=== PATIENT | female | born 1955 ===

== ENCOUNTER 2018-03-30 20:09 | Emergency (ER) | payer OTHER ==
[2018-03-30 20:10] VITALS: BMI 28.4
[2018-03-30 20:24] VITALS: BP 149/78; PULSE 90; RESP 18; TEMP 98; O2SAT 100
--- NOTE | 2018-03-30 21:00 | ED PDOC ---
Upper Extremity Pain/Injury Time Seen by Provider: 03/30/18 20:31 Chief Complaint (Nursing): Upper Extremity Problem/Injury Chief Complaint (Provider): right arm pain History Per: Patient History/Exam Limitations: no limitations Onset/Duration Of Symptoms: Days (x3 weeks) Current Symptoms Are (Timing): Still Present Quality: "Pain" Additional Complaint(s): Love Tavares is a 62 year old female, with a past medical history of HTN and diabetes, who presents to the emergency department complaining of a right arm pain s/p fall x3 weeks ago. Patient works as a homemaker and states x3 weeks ago she slipped on wet floor and landed on her buttocks and back. Patient is unsure but states her right arm hit something while she was falling. She took Alieve for the pain, last dose was x2 days ago. She denies any other injuries, weakness, numbness or tingling. No further medical complaints. PMD: None provided. Past Medical History Reviewed: Historical Data, Nursing Documentation, Vital Signs Vital Signs: Last Vital Signs Temp 98 F 03/30/18 20:21 Pulse 90 03/30/18 20:21 Resp 18 03/30/18 20:21 BP 149/78 03/30/18 20:21 Pulse Ox 100 03/30/18 20:21 - Medical History PMH: Diabetes, HTN Denies: Chronic Kidney Disease - Surgical History Surgical History: No Surg Hx Denies: Pacemaker - Family History Family History: States: Unknown Family Hx - Social History Current smoker - smoking cessation education provided: No Alcohol: None Drugs: Denies - Home Medications Home Medications: Ambulatory Orders Medication Instructions Recorded Lisinopril [Zestril] 10 mg PO BID 10/21/16 MetFORMIN [glucOPHAGE] 1,000 mg PO BID 10/21/16 Ibuprofen [Motrin] 600 mg PO Q6 #20 tab 03/30/18 - Allergies Allergies/Adverse Reactions: Allergies Allergy/AdvReac Type Severity Reaction Status Date / Time No Known Allergies Allergy Verified 10/21/16 11:39 Review of Systems ROS Statement: Except As Marked, All Systems Reviewed And Found Negative Musculoskeletal: Positive for: Arm Pain (right) Neurological: Negative for: Numbness (tingling) Physical Exam - Reviewed Nursing Documentation Reviewed: Yes Vital Signs Reviewed: Yes - Physical Exam Appears: Positive for: No Acute Distress Head Exam: Positive for: ATRAUMATIC, NORMAL INSPECTION, NORMOCEPHALIC Skin: Positive for: Normal Color, Warm, Dry Eye Exam: Positive for: Normal appearance Neck: Positive for: Painless ROM Extremity: Positive for: Normal ROM (Right upper extremity full ROM. ), Tenderness (mid humeral shaft, no edema or ecchymosis). Negative for: Deformity , Swelling (right upper extremity) Neurologic/Psych: Positive for: Alert, Oriented. Negative for: Motor/Sensory Deficits - ECG O2 Sat by Pulse Oximetry: 100 (RA) Pulse Ox Interpretation: Normal Medical Decision Making Medical Decision Making: Time: 20:31 Initial Impression: right arm pain s/p fall Initial Plan: --Motrin tab 600 mg PO --Humerus right [RAD] --Shoulder right [RAD] --Reevaluation XR NAD, as read by DEB Advised RICE therapy Scribe Attestation: Documented by Varghese Hidalgo, acting as a scribe for Kelli Regalado PA-C Provider Scribe Attestation: All medical record entries made by the Scribe were at my direction and personally dictated by me. I have reviewed the chart and agree that the record accurately reflects my personal performance of the history, physical exam, medical decision making, and the department course for this patient. I have also personally directed, reviewed, and agree with the discharge instructions and disposition. Disposition - Clinical Impression Clinical Impression: Arm sprain - Patient ED Disposition Is Patient to be Admitted: No - Disposition Disposition: Routine/Home Disposition Time: 21:38 Condition: STABLE Prescriptions: Ibuprofen [Motrin] 600 mg PO Q6 #20 tab Instructions: Shoulder Sprain, Muscle Strain Forms: Conviva (Sami), Conviva (Divehi)
--- NOTE | 2018-03-31 11:22 | RAD ---
PROCEDURE: Radiographs of the right humerus. HISTORY: pain s/p fall COMPARISON: None. FINDINGS: BONES: Normal. No fracture or focal lesion. SOFT TISSUES: Normal. OTHER FINDINGS: None. IMPRESSION: No acute findings related to/accounting for the clinical presentation. Concordant results with the preliminary interpretation rendered by the emergency department physician procedure.
--- NOTE | 2018-03-31 11:22 | RAD ---
Date of service: 03/30/2018 PROCEDURE: Radiographs of the Right Shoulder HISTORY: pain s/p fall COMPARISON: No FINDINGS: BONES: Normal. No fracture. JOINTS: Preserved glenohumeral relationship, acromioclavicular degenerative change: Mild. SOFT TISSUES: Normal. OTHER FINDINGS: None. IMPRESSION: No acute findings related to/accounting for the clinical presentation. Concordant results with the preliminary interpretation rendered by the emergency department physician procedure.
== END 2018-03-30 22:00 | disposition home or self-care (01) ==
LOC: H.ER 20:09
DX: S53.401A Unspecified sprain of right elbow, initial encounter (principal); W19.XXXA Unspecified fall, initial encounter; Y92.89 Other specified places as the place of occurrence of the external cause; E11.9 Type 2 diabetes mellitus without complications; Z79.84 Long term (current) use of oral hypoglycemic drugs; I10 Essential (primary) hypertension